=== PATIENT | male | born 1965 | race Caucasian/White ===

== ENCOUNTER 2018-05-27 15:23 | Emergency (ER) | payer OTHER ==
[2018-05-27 15:35] VITALS: BP 132/87; PULSE 89; TEMP 98; BMI 29.5
[2018-05-27] MEDS ORDERED: METOCLOPRAMIDE HCL INJECTION 10 MG/2 ML VIAL IVPB ONE (16:15)
[2018-05-27] MEDS ORDERED: ACETAMINOPHEN 1000 MG/100 ML VIAL (NON FORMULARY) IVPB ONE (16:15)
[2018-05-27] MEDS ORDERED: SODIUM CHLORIDE 1,000 ML IV STA (16:15)
[2018-05-27] MEDS ORDERED: ACETAMINOPHEN INJECTION 100 ML IVPB ONE (16:20)
--- NOTE | 2018-05-27 16:24 | PDOC ---
History of Present Illness - General Chief Complaint: Pain Stated Complaint: HEADACHE, SORE THROAT Time Seen by Provider: 05/27/18 15:24 - History of Present Illness Initial Comments: 05/27/18 16:19 52 M with h/o polycythemia vera and asthma presenting with 3 days of bodyaches, sore throat, and headache. Pt states that his symptoms began with bodyaches, which have since resolved. He then developed a sore throat with a cough. Pt also reports a diffuse headache. He has h/o frequent headaches and states that this headache is similar to previous ones. He denies F/C. Denies neck pain. Endorses mild nausea without vomiting and diarrhea. No abdominal pain. No CP/ SOB. Past History - Past Medical History Allergies/Adverse Reactions: Allergies Allergy/AdvReac Type Severity Reaction Status Date / Time Penicillins Allergy Hives Verified 05/27/18 15:25 Home Medications: Ambulatory Orders Levothyroxine [Synthroid -] 300 mcg PO DAILY 02/17/13 Albuterol Sulfate Inhaler - [Ventolin HFA Inhaler -] 2 inh IH Q4H PRN #1 inh 07/27 Cephalexin [Keflex] 500 mg PO BID #20 capsule 05/27/18 Asthma: Yes COPD: No CHF: No Diabetes: No HTN: No Hypercholesterolemia: No Thyroid Disease: Yes (HYPO) Other medical history: POLYCYTHEMIA - Surgical History Abdominal Surgery: Yes (HERNIA) Cholecystectomy: Yes - Immunization History Td Vaccination: Yes Immunization Up to Date: No - Suicide/Smoking/Psychosocial Hx Smoking Status: No Smoking History: Never smoked Have you smoked in the past 12 months: No Number of Cigarettes Smoked Daily: 0 Information on smoking cessation initiated: No Hx Alcohol Use: (rarely) Review of Systems - Review of Systems Comments:: 05/27/18 16:24 "GENERAL/CONSTITUTIONAL: No fever or chills. No weakness. HEAD, EYES, EARS, NOSE AND THROAT: No change in vision. No ear pain or discharge. No sore throat. CARDIOVASCULAR: No chest pain or shortness of breath. RESPIRATORY: + cough, no wheezing, or hemoptysis. GASTROINTESTINAL: + nausea and diarrhea, no vomiting or constipation. GENITOURINARY: No dysuria, frequency, or change in urination. MUSCULOSKELETAL: No joint or muscle swelling or pain. No neck or back pain. SKIN: No rash NEUROLOGIC: + headache, no vertigo, loss of consciousness, or change in strength /sensation. ENDOCRINE: No increased thirst. No abnormal weight change. HEMATOLOGIC/LYMPHATIC: No anemia, easy bleeding, or history of blood clots. ALLERGIC/IMMUNOLOGIC: No hives or skin allergy. " *Physical Exam - Vital Signs Last Vital Signs Temp Pulse Resp BP Pulse Ox 98 F 89 18 132/87 99 05/27/18 15:23 05/27/18 15:23 05/27/18 15:23 05/27/18 15:23 05/27/18 15:23 - Physical Exam Comments: 05/27/18 16:25 "GENERAL: Awake, alert, and fully oriented, in no acute distress. HEAD: No signs of trauma EYES: PERRLA, EOMI, sclera anicteric, conjunctiva clear ENT: + erythema posterior oropharynx, no exudates, Auricles normal inspection, hearing grossly normal, nares patent. Moist mucosa NECK: Nontender, no stepoffs, Normal ROM, supple, no lymphadenopathy, JVD, or masses LUNGS: Breath sounds equal, clear to auscultation bilaterally. No wheezes, and no crackles HEART: Regular rate and rhythm, normal S1 and S2, no murmurs, rubs or gallops ABDOMEN: Soft, nontender, normoactive bowel sounds. No guarding, no rebound. No masses EXTREMITIES: Normal range of motion, no edema. No clubbing or cyanosis. No cords, erythema, or tenderness NEUROLOGICAL: Cranial nerves II through XII intact. 5/5 strength and sensation in all extremities, Normal speech, normal gait, normal cerebellar function SKIN: Warm, Dry, normal turgor, no rashes or lesions noted." Medical Decision Making - Medical Decision Making 05/27/18 16:26 52 M with bodyaches, sore throat, headache, and diarrhea. Likely viral syndrome. Pt afebrile with normal vitals. Exam notable only for erythema of posterior oropharynx. Will r/o strep throat. Pt without any signs of meningitis on exam. - Rapid strep - CXR to r/o PNA - IVF, tylenol, reglan 05/27/18 17:40 Strep + Pt with pen allergy (mild urticaria as a teenager). Will tx with Keflex CXR clear 05/27/18 17:45 Pt reassessed - feels much better. Pt is well appearing, with normal vitals. Clinically stable for DC at this time. I discussed the physical exam findings, ancillary test results and final diagnoses with the patient. I answered all of the patient's questions. The patient was satisfied with the care received and felt comfortable with the discharge plan and treatment plan. The patient agrees to follow up with the primary care physician within 24-72 hours. *DC/Admit/Observation/Transfer Diagnosis at time of Disposition: Strep pharyngitis - Discharge Dispostion Disposition: HOME Condition at time of disposition: Stable - Prescriptions Prescriptions: Cephalexin [Keflex] 500 mg PO BID #20 capsule - Referrals - Patient Instructions Printed Discharge Instructions: DI for Strep Throat Additional Instructions: You have strep throat. Take the antibiotics as prescribed to treat it ( Cephalexin 500mg every 12 hours for 10 days). If you experience worsening throat pain, high fevers, difficulty swallowing, or any other concerning symptoms, return to the ER immediately. Otherwise, follow up with your primary doctor within 1 week. - Post Discharge Activity Forms/Work/School Notes: Back to Work - Attestations Physician Attestion: 05/27/18 17:48 I, Dr. Darrin Vazquez MD, attest that this document has been prepared under my direction and personally reviewed by me in its entirety. I further attest, that it accurately reflects all work, treatment, procedures and medical decision -making performed by me.
[2018-05-27] MEDS ORDERED: CEPHALEXIN MONOHYDRATE 500 MG CAPSULE (UD) PO ONE (17:37)
[2018-05-27] MEDS ORDERED: CEPHALEXIN MONOHYDRATE 500 MG CAPSULE (UD) ONE (17:58)
[2018-05-27] MEDS ORDERED: DEXAMETHASONE SOD PHOSPHATE 10 MG/1 ML VIAL IVPUSH ONE (17:59)
[2018-05-27] MEDS ORDERED: KETOROLAC TROMETHAMINE 30 MG/1 ML VIAL IVPUSH ONE (17:59)
[2018-05-27] MEDS ORDERED: DEXAMETHASONE SOD PHOSPHATE 10 MG/1 ML VIAL ONE (18:01)
[2018-05-27] MEDS ORDERED: KETOROLAC TROMETHAMINE 30 MG/1 ML VIAL ONE (18:01)
== END 2018-05-27 19:00 | disposition home or self-care (01) ==
LOC: FER 15:23
PROC: 3E033NZ Introduction of Analgesics, Hypnotics, Sedatives into Peripheral Vein, Percutaneous Approach (ICD-10-PCS; principal; 2018-05-27)
PROC: 3E033GC Introduction of Other Therapeutic Substance into Peripheral Vein, Percutaneous Approach (ICD-10-PCS; 2018-05-27)
PROC: 3E0333Z Introduction of Anti-inflammatory into Peripheral Vein, Percutaneous Approach (ICD-10-PCS; 2018-05-27)
PROC: 3E0337Z Introduction of Electrolytic and Water Balance Substance into Peripheral Vein, Percutaneous Approach (ICD-10-PCS; 2018-05-27)
DX: J02.0 Streptococcal pharyngitis (principal); E03.9 Hypothyroidism, unspecified; J45.909 Unspecified asthma, uncomplicated; D75.1 Secondary polycythemia
CPT/HCPCS: 71046-TC-FY; 87070; 87430; 99285-25; J0131; J1100; J7030

== ENCOUNTER 2022-08-21 19:46 | Observation (INO) | payer SELFPAY ==
[2022-08-21 20:02] VITALS: BMI 31.0
[2022-08-21] MEDS ORDERED: HYDROCORTISONE SOD SUCCINATE 100 MG/2 ML VIAL IVPUSH ONE (20:16)
[2022-08-21] MEDS ORDERED: dilTIAZem HCL 60 MG TABLET PO ONE (20:18)
[2022-08-21 20:59] LABS: BASO % 1.9 % (0-2.0); EOS % 7.4 % (0-4.5); HEMATOCRIT 48.1 % (35.4-49); HEMOGLOBIN 15.7 GM/dL (11.7-16.9); LYMPH % 24.2 % (8-40); MCH 30.5 pg (25.7-33.7); MCHC 32.7 g/dl (32.0-35.9); MEAN CELL VOLUME 93.3 fl (80-96); MEAN PLT VOLUME 8.4 fl (7.5-11.1); MONO % 9.4 % (3.8-10.2); NEUT % 57.1 % (42.8-82.8); PLATELET COUNT 319 10^3/uL (134-434); RBC 5.16 M/mm3 (4.00-5.60); RDW 14.3 % (11.9-15.9); WHITE BLOOD COUNT 8.5 K/mm3 (4.0-10.0)
[2022-08-21 21:23] LABS: CALCIUM 9.9 mg/dL (8.5-10.1)
[2022-08-21 21:25] LABS: ALBUMIN 4.4 g/dl (3.4-5.0)
[2022-08-21 21:28] LABS: CREATININE 1.4 mg/dL (0.55-1.3)
[2022-08-21 21:29] LABS: BILIRUBIN,TOTAL 0.4 mg/dL (0.2-1)
[2022-08-21] MEDS ORDERED: LEVOTHYROXINE SODIUM 100 MCG 5 ML VIAL IM ONE (22:18)
[2022-08-21] MEDS ORDERED: LACTATED RINGERS SOLUTION 1000 ML INFUS.BAG IV ONE (22:55)
[2022-08-21] MEDS ORDERED: LEVOTHYROXINE SODIUM 100 MCG 5 ML VIAL IVPUSH ONE ×2 (23:05)
[2022-08-22] MEDS ORDERED: NITROGLYCERIN SUBLINGUAL 1/150 0.4 MG TAB SL ONE (02:15)
[2022-08-22] MEDS ORDERED: NITROGLYCERIN SUBLINGUAL 1/150 0.4 MG TAB ONE (02:16)
[2022-08-22 02:26] VITALS: PULSE 60
[2022-08-22] MEDS ORDERED: VALSARTAN 40 MG TABLET PO ONE (02:29)
[2022-08-22] MEDS ORDERED: HEPARIN NA (PORCINE) 5,000 UNITS/ML 1ML VIAL IVPUSH PRN ×3 (02:35→02:37)
[2022-08-22] MEDS ORDERED: HEPARIN - 25,000 UNIT in SODIUM CHLORIDE 495 ML IV SCH (02:45)
[2022-08-22] MEDS ORDERED: METOPROLOL TARTRATE 25 MG TABLET (FP) PO ONE (02:58)
[2022-08-22] MEDS ORDERED: ATORVASTATIN CA 80 MG TABLET (FP) PO ONE (02:59)
[2022-08-22] MEDS ORDERED: TICAGRELOR 60 MG TABLET PO ONE (03:00)
[2022-08-22] MEDS ORDERED: CLOPIDOGREL BISULFATE 300 MG TABLET PO ONE (03:10)
[2022-08-22] MEDS ORDERED: HEPARIN NA (PORCINE) 5,000 UNITS/ML 1ML VIAL ONE (03:22)
[2022-08-22] MEDS ORDERED: TICAGRELOR 90 MG TABLET PO ONE (03:22)
[2022-08-22] MEDS ORDERED: ATORVASTATIN CA 80 MG TABLET (FP) ONE (03:22)
[2022-08-22] MEDS ORDERED: METOPROLOL TARTRATE 25 MG TABLET (FP) ONE (03:22)
[2022-08-22 04:04] VITALS: BP 134/72; RESP 20; TEMP 98.2
[2022-08-22] MEDS ORDERED: LEVOTHYROXINE SODIUM 100 MCG 5 ML VIAL IVPUSH SCH (07:00)
[2022-08-22] MEDS ORDERED: LEVOTHYROXINE SODIUM 100 MCG 5 ML VIAL IVPUSH ONE (22:31)
== END 2022-08-22 04:04 | disposition short-term general hospital (02) ==
LOC: JER 19:46 → JERBED 22:55
PROVIDERS: ADMIT Internal Medicine; ATTEND Internal Medicine
PROC: 3E033GC Introduction of Other Therapeutic Substance into Peripheral Vein, Percutaneous Approach (ICD-10-PCS; principal; 2022-08-21)
PROC: 3E0337Z Introduction of Electrolytic and Water Balance Substance into Peripheral Vein, Percutaneous Approach (ICD-10-PCS; 2022-08-21)
DX: I21.3 ST elevation (STEMI) myocardial infarction of unspecified site (principal); R07.9 Chest pain, unspecified; E03.9 Hypothyroidism, unspecified; R00.0 Tachycardia, unspecified; J45.909 Unspecified asthma, uncomplicated; D45 Polycythemia vera; E66.8 Other obesity; Z68.31 Body mass index [BMI] 31.0-31.9, adult; Z88.0 Allergy status to penicillin
CPT/HCPCS: 0241U-QW; 36415; 71045-TC-FY; 80053; 84436; 84443; 84479; 84484; 85025; 93005; 93010; 99285-25; G0378; J1644

== ENCOUNTER 2022-11-23 15:00 | Emergency (ER) | payer OTHER ==
[2022-11-23 15:22] VITALS: RESP 18; TEMP 98.2; BMI 31.0
[2022-11-23] MEDS ORDERED: ALBUTEROL SO4 2.5/IPRATROPIUM 0.5 INH SOL 3 ML VIAL.NEB. NEB ONE ×2 (15:26→15:44)
[2022-11-23 16:14] LABS: INR 1.07 (0.83-1.09); PROTHROMBIN TIME (PATIENT) 12.3 SEC (9.7-13.0)
[2022-11-23 16:20] LABS: ALBUMIN 3.5 g/dl (3.4-5.0); BILIRUBIN,TOTAL 0.4 mg/dl (0.2-1); CALCIUM 8.7 mg/dl (8.5-10); CREATININE 1.1 mg/dl (0.55-1.3); HEMATOCRIT 44.7 % (35.4-49); HEMOGLOBIN 15.5 G/dL (11.7-16.9); MCH 31.2 pg (25.7-33.7); MCHC 34.7 g/dl (32.0-35.9); MEAN CELL VOLUME 89.9 fl (80-96); PLATELET COUNT 290.3 10^3/uL (134-434); RBC 4.97 10^6/uL (4.00-5.60); RDW 12.9 % (11.9-15.9); TOT PROT 6.5 g/dl (6.4-8.2); WHITE BLOOD COUNT 10.2 10^3/uL (4.0-10.8)
[2022-11-23 18:04] LABS: PLATELET ESTIMATE ADEQUATE
[2022-11-23] MEDS ORDERED: SODIUM CHLORIDE 1,000 ML IV ONE (18:35)
[2022-11-23] MEDS ORDERED: metroNIDAZOLE 250 MG TABLET PO ONE (21:09)
[2022-11-23 21:14] VITALS: BP 126/75; PULSE 68
== END 2022-11-23 21:30 | disposition home or self-care (01) ==
LOC: FER 15:00
PROC: 3E0F7GC Introduction of Other Therapeutic Substance into Respiratory Tract, Via Natural or Artificial Opening (ICD-10-PCS; principal; 2022-11-23)
PROC: 3E0337Z Introduction of Electrolytic and Water Balance Substance into Peripheral Vein, Percutaneous Approach (ICD-10-PCS; 2022-11-23)
DX: L40.9 Psoriasis, unspecified (principal); K08.89 Other specified disorders of teeth and supporting structures; R07.9 Chest pain, unspecified; Z20.822 Contact with and (suspected) exposure to COVID-19
CPT/HCPCS: 0241U-QW; 36415; 71046-TC-FY; 71275-TC; 74174-TC; 80053; 83880; 84436; 84443; 84484; 85027; 85379; 85610; 93005; 99285-25; Q9967

== ENCOUNTER 2023-04-28 05:30 | Emergency (ER) | payer OTHER ==
[2023-04-28 05:37] VITALS: BP 129/79; PULSE 63; RESP 20; BMI 31.0
[2023-04-28] MEDS ORDERED: ALBUTEROL SO4 2.5/IPRATROPIUM 0.5 INH SOL 3 ML VIAL.NEB. NEB ONE (05:43)
[2023-04-28] MEDS ORDERED: ALBUTEROL SO4 2.5/IPRATROPIUM 0.5 INH SOL 3 ML VIAL.NEB. NEB SCH (06:00)
== END 2023-04-28 05:59 | disposition home or self-care (01) ==
LOC: FER 05:30
PROC: 3E0F7GC Introduction of Other Therapeutic Substance into Respiratory Tract, Via Natural or Artificial Opening (ICD-10-PCS; principal; 2023-04-28)
DX: R06.02 Shortness of breath (principal); F41.9 Anxiety disorder, unspecified
CPT/HCPCS: 99283-25